=== PATIENT | female | born 1935 | race Caucasian/White ===

== ENCOUNTER 2017-02-01 17:11 | Emergency (ER) | payer OTHER ==
[~2017-02-01] VITALS: Ht 167.6 cm; Wt 90.7 kg
[~2017-02-01 17:11] MED LIST: AMLO5TAB4 PO; ASPI325T2 PO; CEL20 PO; CLOP75TA2 PO; HYDR25TA4 PO; ISOS30TA6 PO; POTA20TA83 PO; PRO40 PO; TRAM50TA92 PO
[2017-02-01 17:24] VITALS: BP 129/87; PULSE 92; RESP 16; TEMP 98.2; O2SAT 96
--- NOTE | 2017-02-01 17:24 | NUR ---
Note dimitris in [facility] - 02/01/17 at 1737 by [email or web address] Patient to bed 05 to wn for evaluation. Side rails up.
[2017-02-01 18:03] LABS: BASOPHILS # (AUTO) 0.3 K/uL (0.0-0.2); BASOPHILS % (AUTO) 1.7 % (0.0-2.0); EOSINOPHILS # (AUTO) 0.1 K/uL (0.0-0.4); EOSINOPHILS % (AUTO) 0.6 % (0.0-4.0); HEMATOCRIT 40.6 % (36-48); HEMOGLOBIN 12.9 g/dL (12.0-16.0); LYMPHOCYTES # (AUTO) 1.2 K/uL (1.0-5.5); LYMPHOCYTES % (AUTO) 7.7 % (20.5-51.5); MEAN CORPUSCULAR HEMOGLOBIN 25 pg (27-31); MEAN CORPUSCULAR HGB CONC 32 % (32-36); MEAN CORPUSCULAR VOLUME 78 fL (79.0-98.0); MONOCYTES # (AUTO) 0.6 K/uL (0.0-1.0); MONOCYTES % (AUTO) 3.8 % (1.7-9.3); NEUTROPHILS # (AUTO) 13.1 K/uL (1.8-7.7); NEUTROPHILS % (AUTO) 86.2 % (40.0-70.0); PLATELET COUNT (AUTO) 408 K/uL (130-430); RED BLOOD CELL COUNT(AUTO) 5.19 MIL/uL (4.2-6.2); RED CELL DISTRIBUTION WIDTH 16.4 % (9.0-15.0); WHITE BLOOD COUNT (AUTO) 15.3 K/uL (4.8-10.8)
[2017-02-01 18:13] LABS: ANION GAP 7 (5-15); CALCIUM 9.2 mg/dL (8.4-11.0); CHLORIDE 96 mmol/L (98-107); CREATININE 1.05 mg/dL (0.55-1.30); GLUCOSE 133 mg/dL (70-99); POTASSIUM 3.6 mmol/L (3.5-5.1); SODIUM SERUM 131 mmol/L (136-145); UREA NITROGEN, BLOOD 18 mg/dL (8-21)
[2017-02-01 18:17] LABS: ALANINE AMINOTRANSFERASE 18 U/L (12-78); ALBUMIN 3.7 g/dL (3.4-4.8); ASPARTATE AMINOTRANSFERASE 19 U/L (10-37); LIPASE 65 U/L (73-393); TOTAL BILIRUBIN 0.4 mg/dL (0.0-1.0); TOTAL PROTEIN, SERUM 7.8 g/dL (6.4-8.3)
--- NOTE | 2017-02-01 18:21 | NUR ---
Patient to ER bed 8 to gown for evaluation. Side rails up. Report given to Trina CARRIZALES.
--- NOTE | 2017-02-01 18:21 | NUR ---
ER at bedside examining patient.
--- NOTE | 2017-02-01 18:21 | NUR ---
m Addendum: 02/01/17 at 1922 by [email or web address] disregard
--- NOTE | 2017-02-01 18:22 | NUR ---
Pt presents to ED with RLQ abd pain. No redness, no bruising noted. Denies any trauma to the area. Reports pain at 6/10. Denies taking any pain medication at home
--- NOTE | 2017-02-01 18:41 | NUR ---
# 20 gauge angiocath placed to LAC. Use of asceptic technique. Opsite placed over site. Blood return noted. Flushed with 10 cc of normal saline. No evidence of infiltration noted. Patient tolerated well.
--- NOTE | 2017-02-01 18:55 | NUR ---
Pt attempted to urinate for U/A- Unsuccessful
--- NOTE | 2017-02-01 19:30 | NUR ---
Report given to oncoming Noc nurse Kaiden, RN
[2017-02-01] MEDS ORDERED: IOHEXOL 100 ML IV ONE (19:37)
[2017-02-01 20:40] LABS: BILIRUBIN,URINE NEGATIVE (NEGATIVE); CLARITY/URINE HAZY (CLEAR); COLOR,URINE YELLOW (YELLOW); GLUCOSE,URINE NEGATIVE (NEGATIVE); KETONES,URINE NEGATIVE (NEGATIVE); LEUKOCYTE ESTERASE ,URINE NEGATIVE (NEGATIVE); NITRITE, URINE NEGATIVE (NEGATIVE); PH,URINE 7.5 (5.0-8.0); PROTEIN URINE NEGATIVE (NEGATIVE); UROBILINOGEN,URINE 0.2 (0.2-1.0)
[2017-02-01 20:41] LABS: BLOOD, URINE TRACE (NEGATIVE)
[2017-02-01 20:50] VITALS: BP 121/79; PULSE 79; RESP 16; TEMP 98; O2SAT 99
[2017-02-01 20:53] LABS: BACTERIA,URINE MODERATE /HPF (None Seen); MUCUS,URINE None Seen /LPF (None Seen); RBC,URINE 0-3 /HPF (0-3)
--- NOTE | 2017-02-01 20:55 | NUR ---
Patient given written and verbal discharge instructions and verbalizes understanding. ER MD dr. conn discussed with patient the results and treatment provided. Patient in stable condition. ID arm band removed. IV catheter removed intact and dressing applied, no active bleeding no Rx given. Patient educated on pain management and to follow up with PMD. Pain Scale 0/10 Opportunity for questions provided and answered.
== END 2017-02-01 20:55 | disposition home or self-care (01) ==
LOC: SED 17:11
DX: N39.0 Urinary tract infection, site not specified (principal); K59.00 Constipation, unspecified; I10 Essential (primary) hypertension; Z88.2 Allergy status to sulfonamides; Z88.1 Allergy status to other antibiotic agents; Z86.73 Personal history of transient ischemic attack (TIA), and cerebral infarction without residual deficits; Z79.82 Long term (current) use of aspirin
CPT/HCPCS: 36415; 71260; 74176; 80053; 81000; 83690; 85025; 99285; Q9967

== ENCOUNTER 2017-08-17 22:26 | Emergency (ER) | payer OTHER ==
[~2017-08-17] VITALS: Ht 167.6 cm; Wt 90.7 kg
[2017-08-17 22:26] VITALS: BP_SYST 188
[~2017-08-17 22:26] MED LIST changes: -AMLO5TAB4 PO; -HYDR25TA4 PO; -POTA20TA83 PO
[2017-08-17] MEDS ORDERED: TRAZ-126 PO (22:59)
[2017-08-17] MEDS ORDERED: MAGN400T10 PO (22:59)
[2017-08-17] MEDS ORDERED: FERR-31 PO (22:59)
[2017-08-17] MEDS ORDERED: CYM30 PO (22:59)
[2017-08-17] MEDS ORDERED: PRAM1TAB4 PO (22:59)
[2017-08-17] MEDS ORDERED: TRIA1CAP53 PO (22:59)
[2017-08-17] MEDS ORDERED: LIP20 PO (22:59)
[2017-08-17] MEDS ORDERED: DIPH-TET-PERTUS Vaccine 0.5 ML VIAL (ADACEL) I.M. ONE (23:00)
[2017-08-17] MEDS ORDERED: LIDOCAINE/PRILOCAINE 5 GM CREAM (EMLA) TP ONE (23:15)
[2017-08-18 00:20] VITALS: BP_SYST 185
== END 2017-08-18 00:20 | disposition home or self-care (01) ==
LOC: SED 22:26
DX: S01.01XA Laceration without foreign body of scalp, initial encounter (principal); I10 Essential (primary) hypertension; Z88.1 Allergy status to other antibiotic agents; Z79.82 Long term (current) use of aspirin; Z79.899 Other long term (current) drug therapy; W18.39XA Other fall on same level, initial encounter; Y93.01 Activity, walking, marching and hiking; Y92.89 Other specified places as the place of occurrence of the external cause; Y99.8 Other external cause status
CPT/HCPCS: 12002; 70450; 72125; 90471; 90715; 93005; 99284; J7030

== ENCOUNTER 2018-04-22 12:22 | Inpatient (IN) | payer OTHER ==
[~2018-04-22] VITALS: Ht 167.6 cm; Wt 88.9 kg
[~2018-04-22 12:22] MED LIST changes: +CYM30 PO; +FERR-31 PO; +LIP20 PO; +MAGN400T10 PO; +PRAM1TAB4 PO; +TRAZ-126 PO; +TRIA1CAP53 PO
[2018-04-22 12:40] VITALS: BP_SYST 104
[2018-04-22] MEDS ORDERED: NACL 0.9% 1,000 ML IV ONE (12:45)
[2018-04-22 13:11] LABS: ANION GAP 13 (5-15); CALCIUM 8.9 mg/dL (8.4-11.0); CHLORIDE 89 mmol/L (98-107); CREATININE 1.28 mg/dL (0.55-1.30); GLUCOSE 178 mg/dL (70-99); POTASSIUM 3.2 mmol/L (3.5-5.1); SODIUM SERUM 130 mmol/L (136-145); UREA NITROGEN, BLOOD 31 mg/dL (8-21)
[2018-04-22 13:12] LABS: PROTHROMBIN TIME 10.1 SECS (9.5-12.5)
[2018-04-22 13:16] LABS: ALANINE AMINOTRANSFERASE 39 U/L (12-78); ALBUMIN 2.7 g/dL (3.4-4.8); ASPARTATE AMINOTRANSFERASE 35 U/L (10-37); TOTAL BILIRUBIN 0.5 mg/dL (0.0-1.0)
[2018-04-22 13:27] LABS: HEMATOCRIT 40.9 % (36-54); MEAN CORPUSCULAR HEMOGLOBIN 30 pg (27-31); MEAN CORPUSCULAR HGB CONC 34 % (32-36); MEAN CORPUSCULAR VOLUME 89 fL (79.0-98.0); PLATELET COUNT (AUTO) 294 K/uL (130-430); RED BLOOD CELL COUNT(AUTO) 4.59 MIL/uL (4.2-6.2); RED CELL DISTRIBUTION WIDTH 12.6 % (9.0-15.0); WHITE BLOOD COUNT (AUTO) 13.3 K/uL (4.8-10.8)
[2018-04-22 13:34] LABS: HEMOGLOBIN 13.9 g/dL (12.0-16.0)
[2018-04-22 13:41] LABS: BILIRUBIN,URINE NEGATIVE (NEGATIVE); BLOOD, URINE 2+ (NEGATIVE); CLARITY/URINE CLOUDY (CLEAR); COLOR,URINE YELLOW (YELLOW); GLUCOSE,URINE NEGATIVE (NEGATIVE); KETONES,URINE NEGATIVE (NEGATIVE); LEUKOCYTE ESTERASE ,URINE 2+ (NEGATIVE); NITRITE, URINE POSITIVE (NEGATIVE); PROTEIN URINE 2+ (NEGATIVE); UROBILINOGEN,URINE 0.2 (0.2-1.0)
[2018-04-22 13:43] LABS: BACTERIA,URINE MANY /HPF (None Seen); WBC,URINE 80-100 /HPF (0-3)
[2018-04-22] MEDS ORDERED: cefTRIAXone 1 GM IVPB PREMIX 50 ML IV ONE (13:45)
[2018-04-22 14:31] LABS: BAND % (MANUAL) 8 % (0-6); BASOPHILS % (MANUAL) 0 % (0-2); EOSINOPHILS % (MANUAL) 1 % (0-7); LYMPHOCYTES % (MANUAL) 3 % (20-46); MONOCYTES % (MANUAL) 5 % (0-11)
[2018-04-22] MEDS ORDERED: ATEN50TA PO (15:17)
[2018-04-22] MEDS ORDERED: PRAM1TAB4 PO (15:17)
[2018-04-22] MEDS ORDERED: METF-510 PO (15:17)
[2018-04-22] MEDS ORDERED: DULO60CA41 PO (15:17)
[2018-04-22 15:24] VITALS: BP_SYST 104
[2018-04-22 16:00] VITALS: BP_SYST 104
[2018-04-22 16:05] VITALS: BP_SYST 104
[2018-04-22] MEDS ORDERED: METOCLOPRAMIDE HCL 10 MG/2 ML VIAL IVP PRN (17:30)
[2018-04-22] MEDS ORDERED: ONDANSETRON HCL 4 MG/2 ML VIAL IVP PRN (17:30)
[2018-04-22] MEDS ORDERED: DEXTROSE 50% JECT 50 ML DISP.SYRIN IVP PRN (17:30)
[2018-04-22] MEDS ORDERED: MORPHINE 2 MG/ML INJ. SYRINGE IVP PRN (17:30)
[2018-04-22] MEDS ORDERED: ACETAMINOPHEN 325 MG TABLET PO PRN (17:30)
[2018-04-22] MEDS ORDERED: LEVOFLOXACIN 500 MG/D5W 100 ML IV ONE (18:00)
[2018-04-22] MEDS: NACL 0.9% 1,000 ML IV SCH (18:03)
[2018-04-22 20:00] VITALS: BP_SYST 138
[2018-04-23 01:50] VITALS: BP_SYST 146
[2018-04-23 08:02] VITALS: BP_SYST 127
[2018-04-23] MEDS: NACL 0.9% 1,000 ML IV SCH (10:23)
[2018-04-23 11:17] LABS: BASOPHILS # (AUTO) 0.1 K/uL (0.0-0.2); BASOPHILS % (AUTO) 1.2 % (0.0-2.0); HEMATOCRIT 38.3 % (36-48); HEMOGLOBIN 12.9 g/dL (12.0-16.0); LYMPHOCYTES # (AUTO) 0.5 K/uL (1.0-5.5); LYMPHOCYTES % (AUTO) 3.9 % (20.5-51.5); MEAN CORPUSCULAR HEMOGLOBIN 30 pg (27-31); MEAN CORPUSCULAR HGB CONC 34 % (32-36); MEAN CORPUSCULAR VOLUME 90 fL (79.0-98.0); MONOCYTES # (AUTO) 0.9 K/uL (0.0-1.0); MONOCYTES % (AUTO) 7.5 % (1.7-9.3); NEUTROPHILS # (AUTO) 10.5 K/uL (1.8-7.7); NEUTROPHILS % (AUTO) 87.4 % (40.0-70.0); PLATELET COUNT (AUTO) 272 K/uL (130-430); RED BLOOD CELL COUNT(AUTO) 4.26 MIL/uL (4.2-6.2); RED CELL DISTRIBUTION WIDTH 12.5 % (9.0-15.0)
[2018-04-23 11:30] LABS: ANION GAP 8 (5-15); CALCIUM 8.3 mg/dL (8.4-11.0); CHLORIDE 103 mmol/L (98-107); GLUCOSE 127 mg/dL (70-99); POTASSIUM 3.2 mmol/L (3.5-5.1); SODIUM SERUM 142 mmol/L (136-145); UREA NITROGEN, BLOOD 24 mg/dL (8-21)
[2018-04-23 11:45] LABS: ALANINE AMINOTRANSFERASE 34 U/L (12-78); ALBUMIN 2.2 g/dL (3.4-4.8); ASPARTATE AMINOTRANSFERASE 27 U/L (10-37); THYROID STIMULATING HORMONE 0.11 uIu/mL (0.34-4.82); TOTAL BILIRUBIN 0.4 mg/dL (0.0-1.0)
[2018-04-23] MEDS ORDERED: ATENOLOL 50 MG TABLET (TENORMIN) PO ONE (12:00)
[2018-04-23 12:34] VITALS: BP_SYST 128
[2018-04-23 16:56] VITALS: BP_SYST 114
[2018-04-23] MEDS: INSULIN REGULAR, HUMAN 100 UNITS/ML, 10 ML VIAL (novoLIN R) SUBCUT PRN (17:14)
[2018-04-23 20:00] VITALS: BP_SYST 129
[2018-04-23] MEDS: LEVOFLOXACIN 250 MG/D5W 50 ML IV SCH (20:32)
[2018-04-23] MEDS: ATORVASTATIN 20 MG TABLET PO SCH (20:32)
[2018-04-23] MEDS: traZODone HCL 50 MG TABLET (DESYREL) PO SCH (20:36)
[2018-04-23] MEDS: PRAMIPEXOLE DI-HCL 1 MG TABLET PO SCH (20:38)
[2018-04-24 00:50] VITALS: BP_SYST 123
[2018-04-24] MEDS: NACL 0.9% 1,000 ML IV SCH (05:43)
[2018-04-24 08:00] VITALS: BP_SYST 125
[2018-04-24] MEDS: ASPIRIN 325 MG TABLET PO SCH (09:24)
[2018-04-24] MEDS: ATENOLOL 50 MG TABLET (TENORMIN) PO SCH (09:25)
[2018-04-24] MEDS: PRAMIPEXOLE DI-HCL 1 MG TABLET PO SCH ×2 (09:26→22:59)
[2018-04-24] MEDS: CLOPIDOGREL BISULFATE 75 MG TABLET PO SCH (09:26)
[2018-04-24] MEDS: DULoxetine HCL 30 MG CAPSULE.DR (CYMBALTA) PO SCH (09:26)
[2018-04-24] MEDS: CITALOPRAM HYDROBROMIDE 20 MG TABLET PO SCH (09:26)
[2018-04-24 12:10] VITALS: BP_SYST 113
[2018-04-24] MEDS: INSULIN REGULAR, HUMAN 100 UNITS/ML, 10 ML VIAL (novoLIN R) SUBCUT PRN (12:36)
[2018-04-24 16:10] VITALS: BP_SYST 123
[2018-04-24 19:00] VITALS: BP_SYST 118
[2018-04-24 20:00] VITALS: BP_SYST 118
[2018-04-24] MEDS: LEVOFLOXACIN 250 MG/D5W 50 ML IV SCH (22:56)
[2018-04-24] MEDS: traZODone HCL 50 MG TABLET (DESYREL) PO SCH (22:57)
[2018-04-24] MEDS: ATORVASTATIN 20 MG TABLET PO SCH (22:58)
[2018-04-25 00:42] VITALS: BP_SYST 126
[2018-04-25 06:50] LABS: RED BLOOD CELL COUNT(AUTO) 3.99 MIL/uL (4.2-6.2)
[2018-04-25 06:59] LABS: HEMOGLOBIN 12.1 g/dL (12.0-16.0); MEAN CORPUSCULAR HEMOGLOBIN 30 pg (27-31); MEAN CORPUSCULAR HGB CONC 34 % (32-36); MEAN CORPUSCULAR VOLUME 90 fL (79.0-98.0); PLATELET COUNT (AUTO) 297 K/uL (130-430); RED CELL DISTRIBUTION WIDTH 12.6 % (9.0-15.0); WHITE BLOOD COUNT (AUTO) 12.8 K/uL (4.8-10.8)
[2018-04-25 07:10] LABS: ALANINE AMINOTRANSFERASE 46 U/L (12-78); ALBUMIN 1.9 g/dL (3.4-4.8); ANION GAP 5 (5-15); ASPARTATE AMINOTRANSFERASE 31 U/L (10-37); CALCIUM 8.5 mg/dL (8.4-11.0); CHLORIDE 100 mmol/L (98-107); CREATININE 1.13 mg/dL (0.55-1.30); GLUCOSE 124 mg/dL (70-99); POTASSIUM 3.3 mmol/L (3.5-5.1); SODIUM SERUM 135 mmol/L (136-145); TOTAL BILIRUBIN 0.5 mg/dL (0.0-1.0); UREA NITROGEN, BLOOD 38 mg/dL (8-21)
[2018-04-25] MEDS: CLOPIDOGREL BISULFATE 75 MG TABLET PO SCH (08:57)
[2018-04-25] MEDS: CITALOPRAM HYDROBROMIDE 20 MG TABLET PO SCH (08:57)
[2018-04-25] MEDS: ASPIRIN 325 MG TABLET PO SCH (08:57)
[2018-04-25] MEDS: DULoxetine HCL 30 MG CAPSULE.DR (CYMBALTA) PO SCH (08:57)
[2018-04-25] MEDS: ATENOLOL 50 MG TABLET (TENORMIN) PO SCH (08:59)
[2018-04-25] MEDS: PRAMIPEXOLE DI-HCL 1 MG TABLET PO SCH ×2 (09:07→22:10)
[2018-04-25] MEDS ORDERED: POTASSIUM CHLORIDE 20 MEQ TAB.PRT.SR PO ONE (11:15)
[2018-04-25 12:12] LABS: BAND % (MANUAL) 12 % (0-6); LYMPHOCYTES % (MANUAL) 16 % (20-46); MONOCYTES % (MANUAL) 11 % (0-11)
[2018-04-25 12:13] LABS: BASOPHILS % (MANUAL) 0 % (0-2); EOSINOPHILS % (MANUAL) 0 % (0-7)
[2018-04-25 12:31] VITALS: BP_SYST 113
[2018-04-25 14:45] VITALS: BP_SYST 113
[2018-04-25] MEDS ORDERED: ALBUTEROL SULFATE 0.083% 2.5 MG/3 ML VIAL.NEB INH PRN (14:45)
[2018-04-25] MEDS ORDERED: IPRATROPIUM BROM 0.5 MG/2.5 ML VIAL.NEB (ATROVENT) INH PRN (14:45)
[2018-04-25] MEDS: ALBUTEROL SULFATE 0.083% 2.5 MG/3 ML VIAL.NEB INH SCH ×3 (15:23→23:00)
[2018-04-25] MEDS: IPRATROPIUM BROM 0.5 MG/2.5 ML VIAL.NEB (ATROVENT) INH SCH ×3 (15:23→23:00)
[2018-04-25] MEDS ORDERED: ENOXAPARIN SODIUM 40 MG/0.4 ML SYRINGE SUBCUT ONE (15:30)
[2018-04-25] MEDS ORDERED: ENOXAPARIN SODIUM 80 MG/0.8 ML SYRINGE SUBCUT ONE (16:00)
[2018-04-25] MEDS ORDERED: NS 500 ML IV ONE (16:15)
[2018-04-25 16:24] VITALS: BP_SYST 127
[2018-04-25] MEDS ORDERED: NACL 0.9% 1,000 ML IV ONE (16:45)
[2018-04-25] MEDS: PIPERACILLIN/TAZO 3.375/DEX-IS 50 ML IV SCH (18:24)
[2018-04-25 20:00] VITALS: BP_SYST 112
[2018-04-25] MEDS ORDERED: IOHEXOL 350 mgI/mL, 150 ML INFUS..BTL IV ONE (20:57)
[2018-04-25] MEDS: traZODone HCL 50 MG TABLET (DESYREL) PO SCH (22:09)
[2018-04-25] MEDS: LEVOFLOXACIN 250 MG/D5W 50 ML IV SCH (22:09)
[2018-04-25] MEDS: ATORVASTATIN 20 MG TABLET PO SCH (22:09)
[2018-04-26 00:20] VITALS: BP_SYST 106
[2018-04-26] MEDS: PIPERACILLIN/TAZO 3.375/DEX-IS 50 ML IV SCH ×3 (00:52→11:37)
[2018-04-26] MEDS: ALBUTEROL SULFATE 0.083% 2.5 MG/3 ML VIAL.NEB INH SCH ×3 (07:41→15:33)
[2018-04-26] MEDS: IPRATROPIUM BROM 0.5 MG/2.5 ML VIAL.NEB (ATROVENT) INH SCH ×3 (07:41→15:33)
[2018-04-26 08:00] VITALS: BP_SYST 125
[2018-04-26] MEDS: ASPIRIN 325 MG TABLET PO SCH (08:36)
[2018-04-26] MEDS: PRAMIPEXOLE DI-HCL 1 MG TABLET PO SCH (08:37)
[2018-04-26] MEDS: CLOPIDOGREL BISULFATE 75 MG TABLET PO SCH (08:38)
[2018-04-26] MEDS: CITALOPRAM HYDROBROMIDE 20 MG TABLET PO SCH (08:38)
[2018-04-26] MEDS: DULoxetine HCL 30 MG CAPSULE.DR (CYMBALTA) PO SCH (08:38)
[2018-04-26] MEDS: ATENOLOL 50 MG TABLET (TENORMIN) PO SCH (08:38)
[2018-04-26] MEDS ORDERED: ENOXAPARIN SODIUM 40 MG/0.4 ML SYRINGE SUBCUT SCH (09:00)
[2018-04-26 11:58] VITALS: BP_SYST 116; BP_SYST 121
[2018-04-26 12:00] VITALS: BP_SYST 117
[2018-04-26 16:00] VITALS: BP_SYST 120
== END 2018-04-26 17:05 | disposition home health service (06) | DRG 682 ==
LOC: SED 12:22 → EDSEX 12:22 → SMU 14:22
PROVIDERS: ADMIT Internal Medicine Hospice and Palliative Medicine; ATTEND Internal Medicine Hospice and Palliative Medicine
DX: N17.0 Acute kidney failure with tubular necrosis (principal); G93.40 Encephalopathy, unspecified; J18.9 Pneumonia, unspecified organism; N39.0 Urinary tract infection, site not specified; I10 Essential (primary) hypertension; E11.9 Type 2 diabetes mellitus without complications; E86.0 Dehydration; G25.81 Restless legs syndrome; I11.9 Hypertensive heart disease without heart failure; R41.0 Disorientation, unspecified; B96.20 Unspecified Escherichia coli [E. coli] as the cause of diseases classified elsewhere; Z88.8 Allergy status to other drugs, medicaments and biological substances; Z86.73 Personal history of transient ischemic attack (TIA), and cerebral infarction without residual deficits; Z87.891 Personal history of nicotine dependence; Z88.2 Allergy status to sulfonamides; Z79.899 Other long term (current) drug therapy; Z79.82 Long term (current) use of aspirin; Z90.710 Acquired absence of both cervix and uterus
CPT/HCPCS: 36415; 36600; 71045; 71275; 80053; 81000-TC; 82803-TC; 82962; 83036; 83605; 83880; 84443-TC; 84484; 85007; 85025; 85027; 85610-TC; 85730-TC; 87040-TC; 87086; 87186-TC; 93005; 93970; 94640; 94760; 96361; 96365; 97116-GP; 97530-GP; 99285; J0696; J1650; J1815; J1956; J2270; J2543; J7030; J7613; Q9967

== ENCOUNTER 2022-11-24 16:16 | Inpatient (IN) | payer OTHER ==
[~2022-11-24] VITALS: Ht 165.1 cm; Wt 68.3 kg
[~2022-11-24 16:16] MED LIST changes: +ASPI-858 PO; -ASPI325T2 PO; +ATEN50TA PO; -CYM30 PO; +DULO60CA42 PO; -FERR-31 PO; -ISOS30TA6 PO; -MAGN400T10 PO; +METF-518 PO; -PRO40 PO; -TRAM50TA92 PO; -TRAZ-126 PO; +TRAZ-251 PO; -TRIA1CAP53 PO
[2022-11-24 16:20] VITALS: BP_SYST 157
[2022-11-24] MEDS ORDERED: NACL 0.9% 1,000 ML IV ONE (17:30)
[2022-11-24 19:16] LABS: BASOPHILS % (AUTO) 0.1 % (0.0-2.0); EOSINOPHILS % (AUTO) 0.1 % (0.0-4.0); HEMATOCRIT 39.3 % (36-48); HEMOGLOBIN 13.4 g/dL (12.0-16.0); LYMPHOCYTES # (AUTO) 0.3 K/uL (1.0-5.5); LYMPHOCYTES % (AUTO) 4.2 % (20.5-51.5); MEAN CORPUSCULAR HEMOGLOBIN 30 pg (27-31); MEAN CORPUSCULAR HGB CONC 34 % (32-36); MEAN CORPUSCULAR VOLUME 89 fL (79.0-98.0); MONOCYTES # (AUTO) 0.7 K/uL (0.0-1.0); MONOCYTES % (AUTO) 9.2 % (1.7-9.3); NEUTROPHILS # (AUTO) 7.1 K/uL (1.8-7.7); NEUTROPHILS % (AUTO) 86.4 % (40.0-70.0); PLATELET COUNT (AUTO) 188 K/uL (130-430); RED BLOOD CELL COUNT(AUTO) 4.41 MIL/uL (4.2-6.2); RED CELL DISTRIBUTION WIDTH 12.9 % (9.0-15.0); WHITE BLOOD COUNT (AUTO) 8.2 K/uL (4.8-10.8)
[2022-11-24 19:36] LABS: ALANINE AMINOTRANSFERASE 27 U/L (12-78); ALBUMIN 3.4 g/dL (3.4-4.8); ANION GAP 8 (5-15); ASPARTATE AMINOTRANSFERASE 26 U/L (10-37); CALCIUM 9.3 mg/dL (8.4-11.0); CHLORIDE 100 mmol/L (98-107); CREATININE 1.25 mg/dL (0.55-1.30); GLUCOSE 148 mg/dL (70-99); LIPASE 65 U/L (73-393); TOTAL BILIRUBIN 0.4 mg/dL (0.0-1.0); UREA NITROGEN, BLOOD 29 mg/dL (8-21)
[2022-11-24 19:46] LABS: BILIRUBIN,URINE NEGATIVE (NEGATIVE); BLOOD, URINE 1+ (NEGATIVE); COLOR,URINE YELLOW (YELLOW); GLUCOSE,URINE NEGATIVE (NEGATIVE); KETONES,URINE 1+ (NEGATIVE); LEUKOCYTE ESTERASE ,URINE 3+ (NEGATIVE); NITRITE, URINE POSITIVE (NEGATIVE); PROTEIN URINE 1+ (NEGATIVE); UROBILINOGEN,URINE 0.2 (0.2-1.0)
[2022-11-24 19:58] LABS: CLARITY/URINE HAZY (CLEAR); RBC,URINE NONE SEEN /HPF (0-3); WBC,URINE >100 /HPF (0-3)
[2022-11-24 19:59] LABS: BACTERIA,URINE FEW /HPF (None Seen); MUCUS,URINE None Seen /LPF (None Seen)
[2022-11-24] MEDS ORDERED: cefTRIAXone 1 GM in D5W 50 ML IV ONE (20:00)
[2022-11-24] MEDS ORDERED: cefTRIAXone 1 GM VIAL ONE (20:07)
[2022-11-24] MEDS ORDERED: ACETAMINOPHEN 325 MG TABLET PO PRN (22:45)
[2022-11-24] MEDS: D5/0.45 NS 1,000 ML IV SCH (22:59)
[2022-11-25 00:12] VITALS: BP_SYST 155
[2022-11-25 00:48] VITALS: BP_SYST 155
[2022-11-25 08:00] VITALS: BP_SYST 141
[2022-11-25] MEDS: D5/0.45 NS 1,000 ML IV SCH ×2 (08:45→17:17)
[2022-11-25] MEDS ORDERED: ACETAMINOPHEN 325 MG TABLET PO PRN ×3 (09:30→12:45)
[2022-11-25] MEDS: cefTRIAXone 1 GM IVPB PREMIX 50 ML IV SCH (10:01)
[2022-11-25 12:00] VITALS: BP_SYST 144
[2022-11-25] MEDS ORDERED: HYDROcodone/ACETAMIN 10-325 MG TAB PO PRN (12:15)
[2022-11-25] MEDS ORDERED: cefTRIAXone 1 GM IVPB PREMIX 50 ML IV SCH (12:15)
[2022-11-25] MEDS ORDERED: ONDANSETRON HCL 4 MG/2 ML VIAL IVP PRN (12:15)
[2022-11-25] MEDS ORDERED: LORazepam 2 MG/ML VIAL IVP PRN (12:15)
[2022-11-25] MEDS ORDERED: NALOXONE HCL 0.4 MG/ML AMP (NARCAN) IVP PRN ×2 (12:15)
[2022-11-25] MEDS ORDERED: DULoxetine HCL 30 MG CAPSULE.DR (CYMBALTA) PO ONE (12:45)
[2022-11-25] MEDS ORDERED: ASPIRIN 325 MG TABLET PO ONE (12:45)
[2022-11-25] MEDS ORDERED: ATENOLOL 50 MG TABLET (TENORMIN) PO ONE (12:45)
[2022-11-25] MEDS ORDERED: CLOPIDOGREL BISULFATE 75 MG TABLET PO ONE (12:45)
[2022-11-25] MEDS ORDERED: CITALOPRAM HYDROBROMIDE 20 MG TABLET PO ONE (12:45)
[2022-11-25] MEDS: NORMAL SALINE 5 ML DISP.SYRIN IVF SCH ×2 (13:18→21:36)
[2022-11-25] MEDS ORDERED: NORMAL SALINE 5 ML DISP.SYRIN IVF SCH (14:00)
[2022-11-25 16:52] VITALS: BP_SYST 142
[2022-11-25] MEDS ORDERED: traZODone HCL 50 MG TABLET (DESYREL) PO SCH (21:00)
[2022-11-25] MEDS: ATORVASTATIN 20 MG TABLET PO SCH (21:26)
[2022-11-25] MEDS: PRAMIPEXOLE DI-HCL 1 MG TABLET PO SCH (21:26)
[2022-11-25 21:37] VITALS: BP_SYST 125
[2022-11-26 00:54] VITALS: BP_SYST 100
[2022-11-26] MEDS: HYDROcodone/ACETAMIN 5-325 MG TAB (NORCO/ VICODIN) PO PRN ×2 (02:23→21:10)
[2022-11-26] MEDS: D5/0.45 NS 1,000 ML IV SCH ×2 (05:43→15:35)
[2022-11-26] MEDS: NORMAL SALINE 5 ML DISP.SYRIN IVF SCH ×3 (05:48→21:09)
[2022-11-26 08:00] VITALS: BP_SYST 120
[2022-11-26 08:15] LABS: BASOPHILS % (AUTO) 0.3 % (0.0-2.0); EOSINOPHILS % (AUTO) 0.9 % (0.0-4.0); HEMATOCRIT 34.9 % (36-48); HEMOGLOBIN 11.7 g/dL (12.0-16.0); LYMPHOCYTES # (AUTO) 0.8 K/uL (1.0-5.5); LYMPHOCYTES % (AUTO) 15.2 % (20.5-51.5); MEAN CORPUSCULAR HEMOGLOBIN 30 pg (27-31); MEAN CORPUSCULAR HGB CONC 34 % (32-36); MEAN CORPUSCULAR VOLUME 90 fL (79.0-98.0); MONOCYTES # (AUTO) 0.8 K/uL (0.0-1.0); MONOCYTES % (AUTO) 14.8 % (1.7-9.3); NEUTROPHILS # (AUTO) 3.8 K/uL (1.8-7.7); NEUTROPHILS % (AUTO) 68.8 % (40.0-70.0); PLATELET COUNT (AUTO) 145 K/uL (130-430); RED BLOOD CELL COUNT(AUTO) 3.86 MIL/uL (4.2-6.2); RED CELL DISTRIBUTION WIDTH 12.7 % (9.0-15.0); WHITE BLOOD COUNT (AUTO) 5.6 K/uL (4.8-10.8)
[2022-11-26] MEDS: PRAMIPEXOLE DI-HCL 1 MG TABLET PO SCH ×2 (09:00→21:09)
[2022-11-26] MEDS ORDERED: DULoxetine HCL 30 MG CAPSULE.DR (CYMBALTA) PO SCH (09:00)
[2022-11-26] MEDS ORDERED: CITALOPRAM HYDROBROMIDE 20 MG TABLET PO SCH (09:00)
[2022-11-26] MEDS ORDERED: ATENOLOL 50 MG TABLET (TENORMIN) PO SCH (09:00)
[2022-11-26 09:05] LABS: ANION GAP 8 (5-15); CALCIUM 8.5 mg/dL (8.4-11.0); CHLORIDE 100 mmol/L (98-107); CREATININE 1.36 mg/dL (0.55-1.30); GLUCOSE 149 mg/dL (70-99); UREA NITROGEN, BLOOD 32 mg/dL (8-21)
[2022-11-26] MEDS: ASPIRIN 325 MG TABLET PO SCH ×2 (10:14→10:30)
[2022-11-26] MEDS: CLOPIDOGREL BISULFATE 75 MG TABLET PO SCH (10:16)
[2022-11-26] MEDS: cefTRIAXone 1 GM IVPB PREMIX 50 ML IV SCH (10:24)
[2022-11-26] MEDS: INSULIN REGULAR, HUMAN 100 UNITS/ML, 3 ML VIAL (humuLIN R) SUBCUT PRN (11:00)
[2022-11-26 12:11] VITALS: BP_SYST 142
[2022-11-26 17:14] VITALS: BP_SYST 146
[2022-11-26 20:00] VITALS: BP_SYST 145
[2022-11-26] MEDS: metFORMIN HCL 500 MG TABLET PO SCH (21:00)
[2022-11-26] MEDS: DOXYCYCLINE HYCLATE 100 MG in D5W 100 ML IV SCH (21:08)
[2022-11-26] MEDS: FUROSEMIDE 20 MG TABLET PO SCH (21:08)
[2022-11-26] MEDS: ATORVASTATIN 20 MG TABLET PO SCH (21:09)
[2022-11-27] VITALS: BP_SYST 138
[2022-11-27] MEDS: D5/0.45 NS 1,000 ML IV SCH (00:25)
[2022-11-27 04:00] VITALS: BP_SYST 138
[2022-11-27] MEDS: NORMAL SALINE 5 ML DISP.SYRIN IVF SCH ×3 (06:08→20:53)
[2022-11-27 07:48] LABS: BASOPHILS % (AUTO) 0.3 % (0.0-2.0); EOSINOPHILS # (AUTO) 0.2 K/uL (0.0-0.4); EOSINOPHILS % (AUTO) 3.1 % (0.0-4.0); HEMATOCRIT 37.9 % (36-48); HEMOGLOBIN 12.8 g/dL (12.0-16.0); LYMPHOCYTES # (AUTO) 0.8 K/uL (1.0-5.5); LYMPHOCYTES % (AUTO) 13.2 % (20.5-51.5); MEAN CORPUSCULAR HEMOGLOBIN 30 pg (27-31); MEAN CORPUSCULAR HGB CONC 34 % (32-36); MEAN CORPUSCULAR VOLUME 90 fL (79.0-98.0); MONOCYTES # (AUTO) 0.7 K/uL (0.0-1.0); MONOCYTES % (AUTO) 11.5 % (1.7-9.3); NEUTROPHILS # (AUTO) 4.4 K/uL (1.8-7.7); NEUTROPHILS % (AUTO) 71.9 % (40.0-70.0); PLATELET COUNT (AUTO) 170 K/uL (130-430); RED BLOOD CELL COUNT(AUTO) 4.21 MIL/uL (4.2-6.2); RED CELL DISTRIBUTION WIDTH 13.1 % (9.0-15.0); WHITE BLOOD COUNT (AUTO) 6.1 K/uL (4.8-10.8)
[2022-11-27 07:58] LABS: ALANINE AMINOTRANSFERASE 29 U/L (12-78); ALBUMIN 2.6 g/dL (3.4-4.8); ANION GAP 5 (5-15); ASPARTATE AMINOTRANSFERASE 27 U/L (10-37); C-REACTIVE PROTEIN QUANT 5.5 mg/dL (0-0.5); CALCIUM 8.3 mg/dL (8.4-11.0); CHLORIDE 103 mmol/L (98-107); CREATININE 1.17 mg/dL (0.55-1.30); GLUCOSE 138 mg/dL (70-99); TOTAL BILIRUBIN 0.2 mg/dL (0.0-1.0); UREA NITROGEN, BLOOD 22 mg/dL (8-21)
[2022-11-27 11:00] LABS: ERYTHROCYTE SEDIMENTATION RATE 28 MM/HR (0-20)
[2022-11-27 11:14] VITALS: BP_SYST 148
[2022-11-27] MEDS: cefTRIAXone 1 GM IVPB PREMIX 50 ML IV SCH (13:34)
[2022-11-27] MEDS: DOXYCYCLINE HYCLATE 100 MG in D5W 100 ML IV SCH ×2 (13:35→20:32)
[2022-11-27] MEDS: ASPIRIN 325 MG TABLET PO SCH (13:36)
[2022-11-27] MEDS: metFORMIN HCL 500 MG TABLET PO SCH ×2 (13:36→20:52)
[2022-11-27] MEDS: FUROSEMIDE 20 MG TABLET PO SCH ×2 (13:37→20:30)
[2022-11-27] MEDS: PRAMIPEXOLE DI-HCL 0.25 MG TABLET PO SCH (13:38)
[2022-11-27] MEDS: CLOPIDOGREL BISULFATE 75 MG TABLET PO SCH (13:39)
[2022-11-27 17:09] VITALS: BP_SYST 140
[2022-11-27 20:00] VITALS: BP_SYST 138
[2022-11-27] MEDS: PRAMIPEXOLE DI-HCL 1 MG TABLET PO SCH (21:23)
[2022-11-27] MEDS: ATORVASTATIN 20 MG TABLET PO SCH (21:25)
[2022-11-28 00:23] VITALS: BP_SYST 148
[2022-11-28] MEDS: NORMAL SALINE 5 ML DISP.SYRIN IVF SCH ×3 (06:00→22:38)
[2022-11-28 07:40] LABS: BASOPHILS % (AUTO) 0.3 % (0.0-2.0); EOSINOPHILS # (AUTO) 0.2 K/uL (0.0-0.4); HEMATOCRIT 39.6 % (36-48); HEMOGLOBIN 13.6 g/dL (12.0-16.0); LYMPHOCYTES # (AUTO) 0.8 K/uL (1.0-5.5); LYMPHOCYTES % (AUTO) 12.8 % (20.5-51.5); MEAN CORPUSCULAR HEMOGLOBIN 31 pg (27-31); MEAN CORPUSCULAR HGB CONC 34 % (32-36); MEAN CORPUSCULAR VOLUME 89 fL (79.0-98.0); MONOCYTES # (AUTO) 0.6 K/uL (0.0-1.0); MONOCYTES % (AUTO) 10.5 % (1.7-9.3); NEUTROPHILS # (AUTO) 4.4 K/uL (1.8-7.7); NEUTROPHILS % (AUTO) 73.4 % (40.0-70.0); PLATELET COUNT (AUTO) 200 K/uL (130-430); RED BLOOD CELL COUNT(AUTO) 4.46 MIL/uL (4.2-6.2); RED CELL DISTRIBUTION WIDTH 12.7 % (9.0-15.0); WHITE BLOOD COUNT (AUTO) 5.9 K/uL (4.8-10.8)
[2022-11-28 08:18] LABS: ALANINE AMINOTRANSFERASE 24 U/L (12-78); ALBUMIN 2.6 g/dL (3.4-4.8); ANION GAP 6 (5-15); ASPARTATE AMINOTRANSFERASE 19 U/L (10-37); C-REACTIVE PROTEIN QUANT 8.1 mg/dL (0-0.5); CALCIUM 8.5 mg/dL (8.4-11.0); CHLORIDE 102 mmol/L (98-107); CREATININE 1.01 mg/dL (0.55-1.30); GLUCOSE 109 mg/dL (70-99); TOTAL BILIRUBIN 0.4 mg/dL (0.0-1.0); UREA NITROGEN, BLOOD 20 mg/dL (8-21)
[2022-11-28 08:45] VITALS: BP_SYST 159
[2022-11-28] MEDS: CLOPIDOGREL BISULFATE 75 MG TABLET PO SCH (09:32)
[2022-11-28] MEDS: PRAMIPEXOLE DI-HCL 0.25 MG TABLET PO SCH (09:32)
[2022-11-28] MEDS: ASPIRIN 325 MG TABLET PO SCH (09:32)
[2022-11-28] MEDS: metFORMIN HCL 500 MG TABLET PO SCH ×2 (09:32→22:37)
[2022-11-28] MEDS: POTASSIUM CHLORIDE 10 MEQ TAB.PRT.SR PO SCH (09:32)
[2022-11-28] MEDS: FUROSEMIDE 20 MG TABLET PO SCH ×2 (09:33→22:37)
[2022-11-28] MEDS: cefTRIAXone 1 GM IVPB PREMIX 50 ML IV SCH (09:40)
[2022-11-28 10:39] LABS: ERYTHROCYTE SEDIMENTATION RATE 28 MM/HR (0-20)
[2022-11-28] MEDS: DOXYCYCLINE HYCLATE 100 MG in D5W 100 ML IV SCH ×2 (11:01→22:36)
[2022-11-28 12:05] VITALS: BP_SYST 154
[2022-11-28 15:20] VITALS: BP_SYST 157
[2022-11-28 20:30] VITALS: BP_SYST 137
[2022-11-28] MEDS: PRAMIPEXOLE DI-HCL 1 MG TABLET PO SCH (22:36)
[2022-11-28] MEDS: ATORVASTATIN 20 MG TABLET PO SCH (22:37)
[2022-11-28] MEDS: INSULIN REGULAR, HUMAN 100 UNITS/ML, 3 ML VIAL (humuLIN R) SUBCUT PRN (22:39)
[2022-11-28 23:57] VITALS: BP_SYST 162
[2022-11-29] MEDS: NORMAL SALINE 5 ML DISP.SYRIN IVF SCH ×3 (06:09→21:22)
[2022-11-29 07:59] LABS: BASOPHILS % (AUTO) 0.3 % (0.0-2.0); EOSINOPHILS # (AUTO) 0.2 K/uL (0.0-0.4); EOSINOPHILS % (AUTO) 1.9 % (0.0-4.0); HEMATOCRIT 42.8 % (36-48); HEMOGLOBIN 14.6 g/dL (12.0-16.0); LYMPHOCYTES # (AUTO) 0.9 K/uL (1.0-5.5); LYMPHOCYTES % (AUTO) 9.6 % (20.5-51.5); MEAN CORPUSCULAR HEMOGLOBIN 31 pg (27-31); MEAN CORPUSCULAR HGB CONC 34 % (32-36); MEAN CORPUSCULAR VOLUME 89 fL (79.0-98.0); MONOCYTES # (AUTO) 0.8 K/uL (0.0-1.0); MONOCYTES % (AUTO) 8.8 % (1.7-9.3); NEUTROPHILS # (AUTO) 7.1 K/uL (1.8-7.7); NEUTROPHILS % (AUTO) 79.4 % (40.0-70.0); PLATELET COUNT (AUTO) 214 K/uL (130-430); RED BLOOD CELL COUNT(AUTO) 4.78 MIL/uL (4.2-6.2); RED CELL DISTRIBUTION WIDTH 12.8 % (9.0-15.0); WHITE BLOOD COUNT (AUTO) 8.9 K/uL (4.8-10.8)
[2022-11-29 08:35] LABS: ERYTHROCYTE SEDIMENTATION RATE 36 MM/HR (0-20)
[2022-11-29] MEDS: cefTRIAXone 1 GM IVPB PREMIX 50 ML IV SCH (09:04)
[2022-11-29] MEDS: PRAMIPEXOLE DI-HCL 0.25 MG TABLET PO SCH (09:04)
[2022-11-29] MEDS: ASPIRIN 325 MG TABLET PO SCH (09:05)
[2022-11-29] MEDS: metFORMIN HCL 500 MG TABLET PO SCH ×2 (09:06→21:23)
[2022-11-29] MEDS: FUROSEMIDE 20 MG TABLET PO SCH ×2 (09:12→21:27)
[2022-11-29] MEDS: CLOPIDOGREL BISULFATE 75 MG TABLET PO SCH (09:51)
[2022-11-29 09:55] LABS: ALANINE AMINOTRANSFERASE 21 U/L (12-78); ALBUMIN 2.8 g/dL (3.4-4.8); ANION GAP 12 (5-15); ASPARTATE AMINOTRANSFERASE 18 U/L (10-37); C-REACTIVE PROTEIN QUANT 11.6 mg/dL (0-0.5); CALCIUM 9.4 mg/dL (8.4-11.0); CHLORIDE 102 mmol/L (98-107); CREATININE 1.11 mg/dL (0.55-1.30); GLUCOSE 112 mg/dL (70-99); TOTAL BILIRUBIN 0.4 mg/dL (0.0-1.0); UREA NITROGEN, BLOOD 27 mg/dL (8-21)
[2022-11-29 12:00] VITALS: BP_SYST 142
[2022-11-29] MEDS: DOXYCYCLINE HYCLATE 100 MG in D5W 100 ML IV SCH ×2 (12:15→21:23)
[2022-11-29 16:53] VITALS: BP_SYST 150
[2022-11-29 20:00] VITALS: BP_SYST 158
[2022-11-29] MEDS: PRAMIPEXOLE DI-HCL 1 MG TABLET PO SCH (21:23)
[2022-11-29] MEDS: ATORVASTATIN 20 MG TABLET PO SCH (21:23)
[2022-11-29] MEDS: DEXAMETHASONE SOD PHOSPHATE 10 MG/ML VIAL IVP SCH (21:24)
[2022-11-30] VITALS: BP_SYST 156
[2022-11-30] MEDS: NORMAL SALINE 5 ML DISP.SYRIN IVF SCH ×3 (06:10→20:42)
[2022-11-30] MEDS: INSULIN REGULAR, HUMAN 100 UNITS/ML, 3 ML VIAL (humuLIN R) SUBCUT PRN ×3 (06:11→20:43)
[2022-11-30 08:00] LABS: BASOPHILS % (AUTO) 0.1 % (0.0-2.0); HEMATOCRIT 39.4 % (36-48); HEMOGLOBIN 13.9 g/dL (12.0-16.0); LYMPHOCYTES # (AUTO) 0.6 K/uL (1.0-5.5); LYMPHOCYTES % (AUTO) 5.4 % (20.5-51.5); MEAN CORPUSCULAR HEMOGLOBIN 31 pg (27-31); MEAN CORPUSCULAR HGB CONC 35 % (32-36); MEAN CORPUSCULAR VOLUME 87 fL (79.0-98.0); MONOCYTES # (AUTO) 0.2 K/uL (0.0-1.0); MONOCYTES % (AUTO) 1.8 % (1.7-9.3); NEUTROPHILS # (AUTO) 9.7 K/uL (1.8-7.7); NEUTROPHILS % (AUTO) 92.7 % (40.0-70.0); PLATELET COUNT (AUTO) 218 K/uL (130-430); RED BLOOD CELL COUNT(AUTO) 4.52 MIL/uL (4.2-6.2); RED CELL DISTRIBUTION WIDTH 12.6 % (9.0-15.0); WHITE BLOOD COUNT (AUTO) 10.5 K/uL (4.8-10.8)
[2022-11-30 08:42] LABS: ALANINE AMINOTRANSFERASE 21 U/L (12-78); ALBUMIN 2.6 g/dL (3.4-4.8); ANION GAP 10 (5-15); ASPARTATE AMINOTRANSFERASE 16 U/L (10-37); C-REACTIVE PROTEIN QUANT 12.3 mg/dL (0-0.5); CALCIUM 9.1 mg/dL (8.4-11.0); CHLORIDE 100 mmol/L (98-107); CREATININE 1.26 mg/dL (0.55-1.30); GLUCOSE 164 mg/dL (70-99); TOTAL BILIRUBIN 0.3 mg/dL (0.0-1.0); UREA NITROGEN, BLOOD 34 mg/dL (8-21)
[2022-11-30 09:30] LABS: ERYTHROCYTE SEDIMENTATION RATE 45 MM/HR (0-20)
[2022-11-30] MEDS: cefTRIAXone 1 GM IVPB PREMIX 50 ML IV SCH (09:30)
[2022-11-30] MEDS: CLOPIDOGREL BISULFATE 75 MG TABLET PO SCH (09:31)
[2022-11-30] MEDS: metFORMIN HCL 500 MG TABLET PO SCH ×2 (09:31→20:41)
[2022-11-30] MEDS: DOXYCYCLINE HYCLATE 100 MG in D5W 100 ML IV SCH ×2 (09:31→20:41)
[2022-11-30] MEDS: ASPIRIN 325 MG TABLET PO SCH (09:31)
[2022-11-30] MEDS: PRAMIPEXOLE DI-HCL 0.25 MG TABLET PO SCH (09:32)
[2022-11-30] MEDS: POTASSIUM CHLORIDE 10 MEQ TAB.PRT.SR PO SCH (09:32)
[2022-11-30] MEDS: FUROSEMIDE 20 MG TABLET PO SCH ×2 (09:32→20:42)
[2022-11-30 11:51] VITALS: BP_SYST 156
[2022-11-30 17:05] VITALS: BP_SYST 144
[2022-11-30 20:00] VITALS: BP_SYST 161
[2022-11-30] MEDS: ATORVASTATIN 20 MG TABLET PO SCH (20:41)
[2022-11-30] MEDS: DEXAMETHASONE SOD PHOSPHATE 10 MG/ML VIAL IVP SCH (20:41)
[2022-11-30] MEDS: PRAMIPEXOLE DI-HCL 1 MG TABLET PO SCH (20:42)
[2022-12-01 00:27] VITALS: BP_SYST 140
[2022-12-01] MEDS: NORMAL SALINE 5 ML DISP.SYRIN IVF SCH ×3 (05:58→21:30)
[2022-12-01] MEDS: cefTRIAXone 1 GM IVPB PREMIX 50 ML IV SCH (08:43)
[2022-12-01] MEDS: DOXYCYCLINE HYCLATE 100 MG in D5W 100 ML IV SCH ×2 (08:43→21:30)
[2022-12-01] MEDS: FUROSEMIDE 20 MG TABLET PO SCH ×2 (08:44→21:29)
[2022-12-01] MEDS: PRAMIPEXOLE DI-HCL 0.25 MG TABLET PO SCH (08:44)
[2022-12-01] MEDS: ASPIRIN 325 MG TABLET PO SCH (08:44)
[2022-12-01] MEDS: CLOPIDOGREL BISULFATE 75 MG TABLET PO SCH (08:44)
[2022-12-01] MEDS: metFORMIN HCL 500 MG TABLET PO SCH ×2 (08:45→21:29)
[2022-12-01 09:31] LABS: BASOPHILS % (AUTO) 0.1 % (0.0-2.0); HEMATOCRIT 40.1 % (36-48); HEMOGLOBIN 13.8 g/dL (12.0-16.0); LYMPHOCYTES # (AUTO) 0.8 K/uL (1.0-5.5); LYMPHOCYTES % (AUTO) 6.3 % (20.5-51.5); MEAN CORPUSCULAR HEMOGLOBIN 31 pg (27-31); MEAN CORPUSCULAR HGB CONC 35 % (32-36); MEAN CORPUSCULAR VOLUME 89 fL (79.0-98.0); MONOCYTES # (AUTO) 0.3 K/uL (0.0-1.0); MONOCYTES % (AUTO) 2.5 % (1.7-9.3); NEUTROPHILS # (AUTO) 11.9 K/uL (1.8-7.7); NEUTROPHILS % (AUTO) 91.1 % (40.0-70.0); PLATELET COUNT (AUTO) 264 K/uL (130-430); RED BLOOD CELL COUNT(AUTO) 4.49 MIL/uL (4.2-6.2); RED CELL DISTRIBUTION WIDTH 12.9 % (9.0-15.0)
[2022-12-01 09:36] LABS: ANION GAP 9 (5-15); CALCIUM 9.2 mg/dL (8.4-11.0); CHLORIDE 99 mmol/L (98-107); GLUCOSE 199 mg/dL (70-99); UREA NITROGEN, BLOOD 44 mg/dL (8-21)
[2022-12-01 09:37] LABS: ALANINE AMINOTRANSFERASE 17 U/L (12-78); ALBUMIN 2.8 g/dL (3.4-4.8); ASPARTATE AMINOTRANSFERASE 13 U/L (10-37); C-REACTIVE PROTEIN QUANT 8.6 mg/dL (0-0.5); CREATININE 1.39 mg/dL (0.55-1.30); TOTAL BILIRUBIN 0.3 mg/dL (0.0-1.0)
[2022-12-01 10:31] LABS: ERYTHROCYTE SEDIMENTATION RATE 49 MM/HR (0-20)
[2022-12-01] MEDS: INSULIN REGULAR, HUMAN 100 UNITS/ML, 3 ML VIAL (humuLIN R) SUBCUT PRN ×2 (12:21→18:37)
[2022-12-01 13:36] VITALS: BP_SYST 119
[2022-12-01 17:22] VITALS: BP_SYST 119
[2022-12-01] MEDS ORDERED: ASA81 PO (17:43)
[2022-12-01] MEDS ORDERED: PRAM0.5T3 PO (17:43)
[2022-12-01] MEDS ORDERED: FURO20TA4 PO (17:43)
[2022-12-01] MEDS ORDERED: PRAM1TAB4 PO (17:43)
[2022-12-01] MEDS ORDERED: POTA10TA PO (17:43)
[2022-12-01] MEDS ORDERED: METF-1069 PO (17:43)
[2022-12-01] MEDS ORDERED: METF-381 PO (17:43)
[2022-12-01] MEDS ORDERED: METF-834 PO (17:43)
[2022-12-01 20:00] VITALS: BP_SYST 155
[2022-12-01] MEDS: DEXAMETHASONE SOD PHOSPHATE 10 MG/ML VIAL IVP SCH (21:29)
[2022-12-01] MEDS: PRAMIPEXOLE DI-HCL 1 MG TABLET PO SCH (21:29)
[2022-12-01] MEDS: ATORVASTATIN 20 MG TABLET PO SCH (21:29)
[2022-12-02 01:19] VITALS: BP_SYST 164
[2022-12-02] MEDS: NORMAL SALINE 5 ML DISP.SYRIN IVF SCH ×3 (06:13→22:06)
[2022-12-02] MEDS: INSULIN REGULAR, HUMAN 100 UNITS/ML, 3 ML VIAL (humuLIN R) SUBCUT PRN ×4 (06:14→22:17)
[2022-12-02 08:00] VITALS: BP_SYST 109
[2022-12-02 08:31] LABS: BASOPHILS % (AUTO) 0.1 % (0.0-2.0); HEMATOCRIT 39.4 % (36-48); HEMOGLOBIN 13.3 g/dL (12.0-16.0); LYMPHOCYTES # (AUTO) 0.8 K/uL (1.0-5.5); LYMPHOCYTES % (AUTO) 9.1 % (20.5-51.5); MEAN CORPUSCULAR HEMOGLOBIN 30 pg (27-31); MEAN CORPUSCULAR HGB CONC 34 % (32-36); MEAN CORPUSCULAR VOLUME 89 fL (79.0-98.0); MONOCYTES # (AUTO) 0.3 K/uL (0.0-1.0); MONOCYTES % (AUTO) 3.2 % (1.7-9.3); NEUTROPHILS # (AUTO) 7.6 K/uL (1.8-7.7); NEUTROPHILS % (AUTO) 87.6 % (40.0-70.0); PLATELET COUNT (AUTO) 305 K/uL (130-430); RED BLOOD CELL COUNT(AUTO) 4.45 MIL/uL (4.2-6.2); RED CELL DISTRIBUTION WIDTH 12.9 % (9.0-15.0); WHITE BLOOD COUNT (AUTO) 8.7 K/uL (4.8-10.8)
[2022-12-02 08:48] LABS: ERYTHROCYTE SEDIMENTATION RATE 35 MM/HR (0-20)
[2022-12-02] MEDS: DOXYCYCLINE HYCLATE 100 MG in D5W 100 ML IV SCH ×2 (10:06→21:56)
[2022-12-02] MEDS: POTASSIUM CHLORIDE 10 MEQ TAB.PRT.SR PO SCH (10:07)
[2022-12-02] MEDS: ASPIRIN 325 MG TABLET PO SCH (10:07)
[2022-12-02] MEDS: PRAMIPEXOLE DI-HCL 0.25 MG TABLET PO SCH (10:07)
[2022-12-02] MEDS: metFORMIN HCL 500 MG TABLET PO SCH ×2 (10:07→21:55)
[2022-12-02] MEDS: CLOPIDOGREL BISULFATE 75 MG TABLET PO SCH (10:07)
[2022-12-02] MEDS: FUROSEMIDE 20 MG TABLET PO SCH ×2 (10:19→21:55)
[2022-12-02 10:20] LABS: ANION GAP 4 (5-15); C-REACTIVE PROTEIN QUANT 4.4 mg/dL (0-0.5); CALCIUM 8.9 mg/dL (8.4-11.0); CHLORIDE 94 mmol/L (98-107); CREATININE 1.22 mg/dL (0.55-1.30); GLUCOSE 166 mg/dL (70-99); UREA NITROGEN, BLOOD 48 mg/dL (8-21)
[2022-12-02 11:31] VITALS: BP_SYST 148
[2022-12-02 16:52] VITALS: BP_SYST 141
[2022-12-02 19:52] VITALS: BP_SYST 124
[2022-12-02] MEDS: DEXAMETHASONE SOD PHOSPHATE 10 MG/ML VIAL IVP SCH (21:54)
[2022-12-02] MEDS: ATORVASTATIN 20 MG TABLET PO SCH (21:55)
[2022-12-02] MEDS: PRAMIPEXOLE DI-HCL 1 MG TABLET PO SCH (22:14)
[2022-12-03 01:39] VITALS: BP_SYST 115
[2022-12-03 06:22] LABS: ANION GAP 10 (5-15); C-REACTIVE PROTEIN QUANT 2.2 mg/dL (0-0.5); CALCIUM 8.6 mg/dL (8.4-11.0); CHLORIDE 98 mmol/L (98-107); CREATININE 1.49 mg/dL (0.55-1.30); GLUCOSE 322 mg/dL (70-99); UREA NITROGEN, BLOOD 55 mg/dL (8-21)
[2022-12-03] MEDS: NORMAL SALINE 5 ML DISP.SYRIN IVF SCH ×3 (06:33→23:04)
[2022-12-03 06:35] LABS: BASOPHILS % (AUTO) 0.1 % (0.0-2.0); HEMOGLOBIN 12.7 g/dL (12.0-16.0); LYMPHOCYTES # (AUTO) 0.6 K/uL (1.0-5.5); LYMPHOCYTES % (AUTO) 7.8 % (20.5-51.5); MEAN CORPUSCULAR HEMOGLOBIN 30 pg (27-31); MEAN CORPUSCULAR HGB CONC 33 % (32-36); MEAN CORPUSCULAR VOLUME 89 fL (79.0-98.0); MONOCYTES # (AUTO) 0.3 K/uL (0.0-1.0); MONOCYTES % (AUTO) 3.2 % (1.7-9.3); NEUTROPHILS # (AUTO) 7.1 K/uL (1.8-7.7); NEUTROPHILS % (AUTO) 88.9 % (40.0-70.0); PLATELET COUNT (AUTO) 319 K/uL (130-430); RED BLOOD CELL COUNT(AUTO) 4.28 MIL/uL (4.2-6.2); RED CELL DISTRIBUTION WIDTH 12.8 % (9.0-15.0)
[2022-12-03] MEDS: INSULIN REGULAR, HUMAN 100 UNITS/ML, 3 ML VIAL (humuLIN R) SUBCUT PRN ×2 (06:50→11:32)
[2022-12-03 07:15] LABS: ERYTHROCYTE SEDIMENTATION RATE 31 MM/HR (0-20)
[2022-12-03 08:00] VITALS: BP_SYST 104
[2022-12-03] MEDS: ASPIRIN 325 MG TABLET PO SCH (09:19)
[2022-12-03] MEDS: FUROSEMIDE 20 MG TABLET PO SCH ×2 (09:19→22:41)
[2022-12-03] MEDS: PRAMIPEXOLE DI-HCL 0.25 MG TABLET PO SCH (09:19)
[2022-12-03] MEDS: metFORMIN HCL 500 MG TABLET PO SCH ×2 (09:19→21:00)
[2022-12-03] MEDS: CLOPIDOGREL BISULFATE 75 MG TABLET PO SCH (09:20)
[2022-12-03 11:32] VITALS: BP_SYST 116
[2022-12-03 16:51] VITALS: BP_SYST 122
[2022-12-03] MEDS: DEXAMETHASONE SOD PHOSPHATE 10 MG/ML VIAL IVP SCH (20:00)
[2022-12-03] MEDS: ATORVASTATIN 20 MG TABLET PO SCH (21:00)
[2022-12-03 22:36] VITALS: BP_SYST 148
[2022-12-03] MEDS: PRAMIPEXOLE DI-HCL 1 MG TABLET PO SCH (23:03)
[2022-12-04 05:29] VITALS: BP_SYST 144
[2022-12-04] MEDS: NORMAL SALINE 5 ML DISP.SYRIN IVF SCH ×3 (06:36→21:03)
[2022-12-04] MEDS: INSULIN REGULAR, HUMAN 100 UNITS/ML, 3 ML VIAL (humuLIN R) SUBCUT PRN ×2 (06:44→21:44)
[2022-12-04 07:14] LABS: HEMOGLOBIN 13.4 g/dL (12.0-16.0); LYMPHOCYTES # (AUTO) 0.8 K/uL (1.0-5.5); LYMPHOCYTES % (AUTO) 9.7 % (20.5-51.5); MEAN CORPUSCULAR HEMOGLOBIN 30 pg (27-31); MEAN CORPUSCULAR HGB CONC 34 % (32-36); MEAN CORPUSCULAR VOLUME 89 fL (79.0-98.0); MONOCYTES # (AUTO) 0.2 K/uL (0.0-1.0); MONOCYTES % (AUTO) 2.5 % (1.7-9.3); NEUTROPHILS # (AUTO) 7.5 K/uL (1.8-7.7); NEUTROPHILS % (AUTO) 87.8 % (40.0-70.0); PLATELET COUNT (AUTO) 340 K/uL (130-430); RED BLOOD CELL COUNT(AUTO) 4.51 MIL/uL (4.2-6.2); RED CELL DISTRIBUTION WIDTH 12.7 % (9.0-15.0); WHITE BLOOD COUNT (AUTO) 8.6 K/uL (4.8-10.8)
[2022-12-04 08:00] VITALS: BP_SYST 126
[2022-12-04 08:03] LABS: ALANINE AMINOTRANSFERASE 24 U/L (12-78); ALBUMIN 2.7 g/dL (3.4-4.8); ANION GAP 6 (5-15); ASPARTATE AMINOTRANSFERASE 14 U/L (10-37); CALCIUM 8.6 mg/dL (8.4-11.0); CHLORIDE 98 mmol/L (98-107); CREATININE 1.52 mg/dL (0.55-1.30); GLUCOSE 207 mg/dL (70-99); TOTAL BILIRUBIN 0.4 mg/dL (0.0-1.0); UREA NITROGEN, BLOOD 52 mg/dL (8-21)
[2022-12-04] MEDS: CLOPIDOGREL BISULFATE 75 MG TABLET PO SCH (08:23)
[2022-12-04] MEDS: POTASSIUM CHLORIDE 10 MEQ TAB.PRT.SR PO SCH (08:23)
[2022-12-04] MEDS: ASPIRIN 325 MG TABLET PO SCH (08:23)
[2022-12-04] MEDS: PRAMIPEXOLE DI-HCL 0.25 MG TABLET PO SCH (08:23)
[2022-12-04] MEDS: FUROSEMIDE 20 MG TABLET PO SCH ×2 (08:23→21:01)
[2022-12-04] MEDS: metFORMIN HCL 500 MG TABLET PO SCH ×2 (08:24→21:03)
[2022-12-04 12:30] VITALS: BP_SYST 106
[2022-12-04] MEDS ORDERED: D5/0.45 NS 1,000 ML IV SCH (14:30)
[2022-12-04] MEDS: NACL 0.9% 1,000 ML IV SCH (17:46)
[2022-12-04 18:25] VITALS: BP_SYST 106
[2022-12-04] MEDS: ATORVASTATIN 20 MG TABLET PO SCH (21:03)
[2022-12-04] MEDS: PRAMIPEXOLE DI-HCL 1 MG TABLET PO SCH (21:03)
[2022-12-04] MEDS: DEXAMETHASONE SOD PHOSPHATE 10 MG/ML VIAL IVP SCH (21:03)
[2022-12-05 00:15] VITALS: BP_SYST 129
[2022-12-05] MEDS: NACL 0.9% 1,000 ML IV SCH ×3 (03:34→23:45)
[2022-12-05] MEDS: NORMAL SALINE 5 ML DISP.SYRIN IVF SCH ×3 (06:21→22:00)
[2022-12-05] MEDS: INSULIN REGULAR, HUMAN 100 UNITS/ML, 3 ML VIAL (humuLIN R) SUBCUT PRN ×2 (06:23→21:40)
[2022-12-05 07:58] LABS: BASOPHILS % (AUTO) 0.1 % (0.0-2.0); HEMATOCRIT 40.4 % (36-48); HEMOGLOBIN 13.4 g/dL (12.0-16.0); LYMPHOCYTES # (AUTO) 0.7 K/uL (1.0-5.5); LYMPHOCYTES % (AUTO) 7.4 % (20.5-51.5); MEAN CORPUSCULAR HEMOGLOBIN 29 pg (27-31); MEAN CORPUSCULAR HGB CONC 33 % (32-36); MEAN CORPUSCULAR VOLUME 89 fL (79.0-98.0); MONOCYTES # (AUTO) 0.2 K/uL (0.0-1.0); MONOCYTES % (AUTO) 2.3 % (1.7-9.3); NEUTROPHILS # (AUTO) 8.4 K/uL (1.8-7.7); NEUTROPHILS % (AUTO) 90.2 % (40.0-70.0); PLATELET COUNT (AUTO) 338 K/uL (130-430); RED BLOOD CELL COUNT(AUTO) 4.56 MIL/uL (4.2-6.2); RED CELL DISTRIBUTION WIDTH 12.6 % (9.0-15.0); WHITE BLOOD COUNT (AUTO) 9.3 K/uL (4.8-10.8)
[2022-12-05 08:00] VITALS: BP_SYST 114
[2022-12-05 08:21] LABS: ALANINE AMINOTRANSFERASE 22 U/L (12-78); ALBUMIN 2.6 g/dL (3.4-4.8); ANION GAP 10 (5-15); ASPARTATE AMINOTRANSFERASE 13 U/L (10-37); C-REACTIVE PROTEIN QUANT 0.5 mg/dL (0-0.5); CALCIUM 8.4 mg/dL (8.4-11.0); CHLORIDE 100 mmol/L (98-107); GLUCOSE 228 mg/dL (70-99); PHOSPHORUS 4.6 mg/dL (2.7-4.5); TOTAL BILIRUBIN 0.4 mg/dL (0.0-1.0); UREA NITROGEN, BLOOD 50 mg/dL (8-21)
[2022-12-05] MEDS: ASPIRIN 325 MG TABLET PO SCH (08:53)
[2022-12-05] MEDS: CLOPIDOGREL BISULFATE 75 MG TABLET PO SCH (08:53)
[2022-12-05] MEDS: PRAMIPEXOLE DI-HCL 0.25 MG TABLET PO SCH (08:54)
[2022-12-05] MEDS: FUROSEMIDE 20 MG TABLET PO SCH ×2 (08:54→21:37)
[2022-12-05] MEDS: metFORMIN HCL 500 MG TABLET PO SCH (08:54)
[2022-12-05 10:44] LABS: ERYTHROCYTE SEDIMENTATION RATE 22 MM/HR (0-20)
[2022-12-05 11:17] VITALS: BP_SYST 137
[2022-12-05] MEDS ORDERED: LORazepam 1 MG TABLET PO ONE (11:30)
[2022-12-05 15:47] VITALS: BP_SYST 107
[2022-12-05 20:00] VITALS: BP_SYST 133
[2022-12-05] MEDS: PRAMIPEXOLE DI-HCL 1 MG TABLET PO SCH (21:00)
[2022-12-05] MEDS: ATORVASTATIN 20 MG TABLET PO SCH (21:37)
[2022-12-05] MEDS: DEXAMETHASONE SOD PHOSPHATE 10 MG/ML VIAL IVP SCH (21:38)
[2022-12-06] VITALS (9 sets, daily range): BP systolic 122–153
[2022-12-06] MEDS: NORMAL SALINE 5 ML DISP.SYRIN IVF SCH ×3 (06:00→20:51)
[2022-12-06 06:01] LABS: BASOPHILS % (AUTO) 0.2 % (0.0-2.0); HEMATOCRIT 38.3 % (36-48); HEMOGLOBIN 12.9 g/dL (12.0-16.0); LYMPHOCYTES # (AUTO) 0.9 K/uL (1.0-5.5); LYMPHOCYTES % (AUTO) 8.1 % (20.5-51.5); MEAN CORPUSCULAR HEMOGLOBIN 30 pg (27-31); MEAN CORPUSCULAR HGB CONC 34 % (32-36); MEAN CORPUSCULAR VOLUME 88 fL (79.0-98.0); MONOCYTES # (AUTO) 0.6 K/uL (0.0-1.0); MONOCYTES % (AUTO) 5.1 % (1.7-9.3); NEUTROPHILS # (AUTO) 9.8 K/uL (1.8-7.7); NEUTROPHILS % (AUTO) 86.6 % (40.0-70.0); PLATELET COUNT (AUTO) 301 K/uL (130-430); RED BLOOD CELL COUNT(AUTO) 4.34 MIL/uL (4.2-6.2); RED CELL DISTRIBUTION WIDTH 12.6 % (9.0-15.0); WHITE BLOOD COUNT (AUTO) 11.3 K/uL (4.8-10.8)
[2022-12-06] MEDS: INSULIN REGULAR, HUMAN 100 UNITS/ML, 3 ML VIAL (humuLIN R) SUBCUT PRN ×3 (06:26→20:48)
[2022-12-06 06:28] LABS: ANION GAP 5 (5-15); C-REACTIVE PROTEIN QUANT 0.2 mg/dL (0-0.5); CALCIUM 8.2 mg/dL (8.4-11.0); CHLORIDE 101 mmol/L (98-107); CREATININE 1.29 mg/dL (0.55-1.30); GLUCOSE 190 mg/dL (70-99); PHOSPHORUS 3.1 mg/dL (2.7-4.5); THYROID STIMULATING HORMONE 0.03 uIu/mL (0.34-4.82); UREA NITROGEN, BLOOD 47 mg/dL (8-21)
[2022-12-06 07:41] LABS: ERYTHROCYTE SEDIMENTATION RATE 13 MM/HR (0-20)
[2022-12-06] MEDS: ASPIRIN 325 MG TABLET PO SCH (09:24)
[2022-12-06] MEDS: PRAMIPEXOLE DI-HCL 0.25 MG TABLET PO SCH (09:24)
[2022-12-06] MEDS: POTASSIUM CHLORIDE 10 MEQ TAB.PRT.SR PO SCH (09:24)
[2022-12-06] MEDS: FUROSEMIDE 20 MG TABLET PO SCH ×2 (09:25→20:32)
[2022-12-06] MEDS: CLOPIDOGREL BISULFATE 75 MG TABLET PO SCH (09:25)
[2022-12-06] MEDS: NACL 0.9% 1,000 ML IV SCH (11:56)
[2022-12-06] MEDS: DEXAMETHASONE SOD PHOSPHATE 10 MG/ML VIAL IVP SCH (20:31)
[2022-12-06] MEDS: ATORVASTATIN 20 MG TABLET PO SCH (20:33)
[2022-12-06] MEDS: PRAMIPEXOLE DI-HCL 1 MG TABLET PO SCH (20:33)
[2022-12-07] VITALS: BP_SYST 146
[2022-12-07] MEDS: NACL 0.9% 1,000 ML IV SCH (05:00)
[2022-12-07] MEDS: NORMAL SALINE 5 ML DISP.SYRIN IVF SCH (05:54)
[2022-12-07] MEDS: INSULIN REGULAR, HUMAN 100 UNITS/ML, 3 ML VIAL (humuLIN R) SUBCUT PRN (06:02)
[2022-12-07 06:58] LABS: ANION GAP 8 (5-15); CALCIUM 8.6 mg/dL (8.4-11.0); CHLORIDE 100 mmol/L (98-107); CREATININE 1.37 mg/dL (0.55-1.30); GLUCOSE 231 mg/dL (70-99); PHOSPHORUS 3.7 mg/dL (2.7-4.5)
[2022-12-07 07:02] LABS: BASOPHILS % (AUTO) 0.1 % (0.0-2.0); HEMATOCRIT 40.6 % (36-48); HEMOGLOBIN 14.1 g/dL (12.0-16.0); LYMPHOCYTES # (AUTO) 0.7 K/uL (1.0-5.5); LYMPHOCYTES % (AUTO) 6.9 % (20.5-51.5); MEAN CORPUSCULAR HEMOGLOBIN 31 pg (27-31); MEAN CORPUSCULAR HGB CONC 35 % (32-36); MEAN CORPUSCULAR VOLUME 88 fL (79.0-98.0); MONOCYTES # (AUTO) 0.3 K/uL (0.0-1.0); MONOCYTES % (AUTO) 2.8 % (1.7-9.3); NEUTROPHILS # (AUTO) 8.6 K/uL (1.8-7.7); NEUTROPHILS % (AUTO) 90.2 % (40.0-70.0); PLATELET COUNT (AUTO) 305 K/uL (130-430); RED BLOOD CELL COUNT(AUTO) 4.62 MIL/uL (4.2-6.2); RED CELL DISTRIBUTION WIDTH 12.5 % (9.0-15.0); WHITE BLOOD COUNT (AUTO) 9.6 K/uL (4.8-10.8)
[2022-12-07 07:46] LABS: UREA NITROGEN, BLOOD 45 mg/dL (8-21)
[2022-12-07 07:57] LABS: C-REACTIVE PROTEIN QUANT < 0.2 mg/dL (0-0.5)
[2022-12-07 08:08] VITALS: BP_SYST 142
[2022-12-07 08:17] VITALS: BP_SYST 142
[2022-12-07] MEDS: PRAMIPEXOLE DI-HCL 0.25 MG TABLET PO SCH (08:29)
[2022-12-07] MEDS: ASPIRIN 325 MG TABLET PO SCH (08:29)
[2022-12-07] MEDS: FUROSEMIDE 20 MG TABLET PO SCH (08:29)
[2022-12-07] MEDS: CLOPIDOGREL BISULFATE 75 MG TABLET PO SCH (08:29)
[2022-12-07 08:55] LABS: ERYTHROCYTE SEDIMENTATION RATE 18 MM/HR (0-20)
[2022-12-07 10:57] VITALS: BP_SYST 133
== END 2022-12-07 13:00 | DRG 871 ==
LOC: SED 16:16 → SMU 22:38 → STU 23:51 → SIC 11-28 17:30 → STU 11-28 17:59 → SMU 11-29 11:39 → STU 12-05 21:59
PROVIDERS: ADMIT Preventive Medicine Preventive Medicine/Occupational Environmental Medicine; ATTEND Preventive Medicine Preventive Medicine/Occupational Environmental Medicine
PROC: XW033E5 Introduction of Remdesivir Anti-infective into Peripheral Vein, Percutaneous Approach, New Technology Group 5 (ICD-10-PCS; principal; 2022-11-27)
DX: A41.9 Sepsis, unspecified organism (principal); E43 Unspecified severe protein-calorie malnutrition; J96.01 Acute respiratory failure with hypoxia; U07.1 COVID-19; N17.0 Acute kidney failure with tubular necrosis; E87.1 Hypo-osmolality and hyponatremia; N39.0 Urinary tract infection, site not specified; D64.9 Anemia, unspecified; G40.909 Epilepsy, unspecified, not intractable, without status epilepticus; E88.09 Other disorders of plasma-protein metabolism, not elsewhere classified; E78.5 Hyperlipidemia, unspecified; E83.39 Other disorders of phosphorus metabolism; R79.89 Other specified abnormal findings of blood chemistry; K21.9 Gastro-esophageal reflux disease without esophagitis; E11.65 Type 2 diabetes mellitus with hyperglycemia; E03.9 Hypothyroidism, unspecified; R53.81 Other malaise; E83.51 Hypocalcemia; B96.89 Other specified bacterial agents as the cause of diseases classified elsewhere; I12.9 Hypertensive chronic kidney disease with stage 1 through stage 4 chronic kidney disease, or unspecified chronic kidney disease; E11.22 Type 2 diabetes mellitus with diabetic chronic kidney disease; N18.9 Chronic kidney disease, unspecified; Z86.73 Personal history of transient ischemic attack (TIA), and cerebral infarction without residual deficits; Z79.82 Long term (current) use of aspirin; Z79.899 Other long term (current) drug therapy; Z79.01 Long term (current) use of anticoagulants; Z79.4 Long term (current) use of insulin; Z78.9 Other specified health status; Z68.25 Body mass index [BMI] 25.0-25.9, adult
CPT/HCPCS: 36415; 70450-TC; 71045; 76376; 76770; 80048; 80053; 81000; 83037; 83605; 83690; 83735; 83880; 84100; 84443; 84484; 85025; 85651-TC; 86140; 87040; 87081; 87086; 93005; 93306; 96361; 96365; 97110-GP; 97112-GP; 97116-GP; 97163-GP; 97530-GP; 99285; G0378; J0696; J1100; J1815; J2060; J2405; J3490; J7050; J7060

== ENCOUNTER 2023-08-26 12:52 | Inpatient (IN) | payer OTHER ==
[~2023-08-26] VITALS: Ht 165.1 cm; Wt 75.0 kg
[~2023-08-26 12:52] MED LIST changes: +ASA81 PO; -ASPI-858 PO; -ATEN50TA PO; -CEL20 PO; -DULO60CA42 PO; +FURO20TA4 PO; +METF-1069 PO; -METF-518 PO; +METF-834 PO; +POTA-217 PO; +PRAM0.5T3 PO; -TRAZ-251 PO
[2023-08-26 13:00] VITALS: BP_SYST 172; PULSE 84; RESP 18; TEMP 97; O2SAT 96
[2023-08-26] MEDS ORDERED: ONDANSETRON 4 MG ODT TAB PO ONE (13:45)
[2023-08-26 14:40] LABS: BASOPHILS % (AUTO) 0.4 % (0.0-2.0); EOSINOPHILS # (AUTO) 0.1 K/uL (0.0-0.4); EOSINOPHILS % (AUTO) 0.7 % (0.0-4.0); HEMATOCRIT 40.4 % (36-48); HEMOGLOBIN 13.4 g/dL (12.0-16.0); LYMPHOCYTES # (AUTO) 0.9 K/uL (1.0-5.5); LYMPHOCYTES % (AUTO) 11.2 % (20.5-51.5); MEAN CORPUSCULAR HEMOGLOBIN 30 pg (27-31); MEAN CORPUSCULAR HGB CONC 33 % (32-36); MEAN CORPUSCULAR VOLUME 90 fL (79.0-98.0); MONOCYTES # (AUTO) 0.5 K/uL (0.0-1.0); MONOCYTES % (AUTO) 6.5 % (1.7-9.3); NEUTROPHILS # (AUTO) 6.5 K/uL (1.8-7.7); NEUTROPHILS % (AUTO) 81.2 % (40.0-70.0); PLATELET COUNT (AUTO) 219 K/uL (130-430); RED CELL DISTRIBUTION WIDTH 13.7 % (9.0-15.0)
[2023-08-26 14:54] LABS: ANION GAP 9 (5-15); CARBON DIOXIDE 30 mmol/L (23-29); CHLORIDE 99 mmol/L (98-107); CREATININE 1.83 mg/dL (0.55-1.30); GLUCOSE 99 mg/dL (74-106); POTASSIUM 4.1 mmol/L (3.5-5.1); SODIUM SERUM 138 mmol/L (136-145); UREA NITROGEN, BLOOD 33 mg/dL (8-21)
[2023-08-26 15:10] LABS: ALANINE AMINOTRANSFERASE 18 U/L (12-78); ALBUMIN 3.3 g/dL (3.4-4.8); AMYLASE 65 U/L (0-100); ASPARTATE AMINOTRANSFERASE 14 U/L (10-37); LIPASE 29 U/L (16-77); TOTAL BILIRUBIN 0.3 mg/dL (0.0-1.0); TOTAL PROTEIN, SERUM 6.9 g/dL (6.4-8.3)
[2023-08-26 15:26] LABS: ACETONE, SERUM NEGATIVE (NEGATIVE)
[2023-08-26 15:59] LABS: BILIRUBIN,URINE NEGATIVE (NEGATIVE); COLOR,URINE YELLOW (YELLOW); GLUCOSE,URINE NEGATIVE (NEGATIVE); KETONES,URINE NEGATIVE (NEGATIVE); LEUKOCYTE ESTERASE ,URINE 3+ (NEGATIVE); NITRITE, URINE POSITIVE (NEGATIVE); PH,URINE 5.5 (5.0-8.0); PROTEIN URINE NEGATIVE (NEGATIVE); UROBILINOGEN,URINE 0.2 (0.2-1.0)
[2023-08-26 16:08] LABS: BLOOD, URINE TRACE (NEGATIVE); CLARITY/URINE HAZY (CLEAR); RBC,URINE 0-3 /HPF (0-3); WBC,URINE 80-100 /HPF (0-3)
[2023-08-26 16:09] LABS: BACTERIA,URINE MODERATE /HPF (None Seen); MUCUS,URINE None Seen /LPF (None Seen)
[2023-08-26] MEDS: D5/0.45 NS 1,000 ML IV SCH (18:43)
[2023-08-26 20:00] VITALS: BP_SYST 136; PULSE 85; RESP 16; TEMP 97.6; O2SAT 96
[2023-08-26] MEDS ORDERED: PIPERACILLIN/TAZO 3.375 GM in NS 50 ML IV ONE (22:00)
[2023-08-26] MEDS ORDERED: PIPERACILLIN/TAZOBACTAM 3.375 GM/VIAL (ZOSYN) IV ONE (22:54)
[2023-08-27 01:51] VITALS: BP_SYST 139; PULSE 87; RESP 17; TEMP 97.8; O2SAT 95
[2023-08-27 08:00] VITALS: BP_SYST 144; PULSE 83; RESP 15; TEMP 97.5; O2SAT 100
[2023-08-27 08:19] LABS: BASOPHILS % (AUTO) 0.4 % (0.0-2.0); EOSINOPHILS # (AUTO) 0.1 K/uL (0.0-0.4); EOSINOPHILS % (AUTO) 1.1 % (0.0-4.0); HEMATOCRIT 37.6 % (36-48); HEMOGLOBIN 12.1 g/dL (12.0-16.0); LYMPHOCYTES # (AUTO) 0.7 K/uL (1.0-5.5); LYMPHOCYTES % (AUTO) 14.2 % (20.5-51.5); MEAN CORPUSCULAR HEMOGLOBIN 29 pg (27-31); MEAN CORPUSCULAR HGB CONC 32 % (32-36); MEAN CORPUSCULAR VOLUME 91 fL (79.0-98.0); MONOCYTES # (AUTO) 0.4 K/uL (0.0-1.0); MONOCYTES % (AUTO) 7.8 % (1.7-9.3); NEUTROPHILS % (AUTO) 76.5 % (40.0-70.0); PLATELET COUNT (AUTO) 205 K/uL (130-430); RED BLOOD CELL COUNT(AUTO) 4.15 MIL/uL (4.2-6.2); RED CELL DISTRIBUTION WIDTH 13.6 % (9.0-15.0); WHITE BLOOD COUNT (AUTO) 5.2 K/uL (4.8-10.8)
[2023-08-27 08:29] LABS: ANION GAP 6 (5-15); CALCIUM 9.1 mg/dL (8.4-11.0); CARBON DIOXIDE 32 mmol/L (23-29); CHLORIDE 102 mmol/L (98-107); CREATININE 1.82 mg/dL (0.55-1.30); GLUCOSE 216 mg/dL (74-106); POTASSIUM 4.1 mmol/L (3.5-5.1); SODIUM SERUM 140 mmol/L (136-145); UREA NITROGEN, BLOOD 30 mg/dL (8-21)
[2023-08-27 08:34] LABS: ALANINE AMINOTRANSFERASE 15 U/L (12-78); ASPARTATE AMINOTRANSFERASE 14 U/L (10-37); TOTAL BILIRUBIN 0.3 mg/dL (0.0-1.0); TOTAL PROTEIN, SERUM 6.2 g/dL (6.4-8.3)
[2023-08-27] MEDS: D5/0.45 NS 1,000 ML IV SCH ×2 (10:49→22:38)
[2023-08-27 11:40] VITALS: BP_SYST 148; PULSE 70; RESP 16; TEMP 97.6; O2SAT 94
[2023-08-27] MEDS: PRAMIPEXOLE DI-HCL 1 MG TABLET PO SCH (18:11)
[2023-08-27] MEDS: ALPRAZolam 0.25 MG TABLET PO PRN (18:11)
[2023-08-27 18:24] VITALS: BP_SYST 154; PULSE 87; RESP 21; TEMP 98.4; O2SAT 93
[2023-08-27 20:00] VITALS: BP_SYST 129; PULSE 68; RESP 19; TEMP 97.6; O2SAT 94
[2023-08-27] MEDS ORDERED: POTASSIUM CHLORIDE 10 MEQ TABLET.ER PO SCH (21:00)
[2023-08-27] MEDS: ATORVASTATIN 20 MG TABLET PO SCH (22:37)
[2023-08-27] MEDS: FUROSEMIDE 20 MG TABLET PO SCH (22:38)
[2023-08-28] VITALS (7 sets, daily range): BP systolic 112–136; PULSE 57–117; RESP 15–18; TEMP 97–98.1; O2SAT 93–98
[2023-08-28 05:29] LABS: ALANINE AMINOTRANSFERASE 17 U/L (12-78); ALBUMIN 3.2 g/dL (3.4-4.8); ANION GAP 6 (5-15); ASPARTATE AMINOTRANSFERASE 14 U/L (10-37); CALCIUM 9.9 mg/dL (8.4-11.0); CARBON DIOXIDE 31 mmol/L (23-29); CHLORIDE 101 mmol/L (98-107); CREATININE 1.57 mg/dL (0.55-1.30); GLUCOSE 135 mg/dL (74-106); POTASSIUM 3.6 mmol/L (3.5-5.1); SODIUM SERUM 138 mmol/L (136-145); TOTAL BILIRUBIN 0.3 mg/dL (0.0-1.0); TOTAL PROTEIN, SERUM 6.7 g/dL (6.4-8.3); UREA NITROGEN, BLOOD 29 mg/dL (8-21)
[2023-08-28] MEDS: ASPIRIN 81 MG TAB.CHEW PO SCH (08:05)
[2023-08-28] MEDS: FUROSEMIDE 20 MG TABLET PO SCH ×2 (08:05→20:20)
[2023-08-28] MEDS: CLOPIDOGREL BISULFATE 75 MG TABLET PO SCH (08:05)
[2023-08-28] MEDS: D5/0.45 NS 1,000 ML IV SCH ×2 (08:06→20:15)
[2023-08-28] MEDS: PRAMIPEXOLE DI-HCL 0.25 MG TABLET PO SCH (08:06)
[2023-08-28] MEDS ORDERED: DOCUSATE SODIUM 100 MG CAPSULE PO SCH (15:30)
[2023-08-28] MEDS: PRAMIPEXOLE DI-HCL 1 MG TABLET PO SCH (17:47)
[2023-08-28] MEDS: DOCUSATE SODIUM 100 MG CAPSULE PO SCH (20:20)
[2023-08-28] MEDS: cephALEXin 250 MG CAPSULE PO SCH (20:20)
[2023-08-28] MEDS: ATORVASTATIN 20 MG TABLET PO SCH (20:20)
[2023-08-28] MEDS: ALPRAZolam 0.25 MG TABLET PO PRN (22:34)
[2023-08-29 00:26] VITALS: BP_SYST 131; PULSE 76; RESP 18; TEMP 97.4; O2SAT 91
[2023-08-29 05:32] LABS: BASOPHILS % (AUTO) 0.3 % (0.0-2.0); EOSINOPHILS # (AUTO) 0.2 K/uL (0.0-0.4); EOSINOPHILS % (AUTO) 3.1 % (0.0-4.0); HEMATOCRIT 39.3 % (36-48); HEMOGLOBIN 12.9 g/dL (12.0-16.0); LYMPHOCYTES # (AUTO) 1.2 K/uL (1.0-5.5); MEAN CORPUSCULAR HEMOGLOBIN 29 pg (27-31); MEAN CORPUSCULAR HGB CONC 33 % (32-36); MEAN CORPUSCULAR VOLUME 89 fL (79.0-98.0); MONOCYTES # (AUTO) 0.8 K/uL (0.0-1.0); MONOCYTES % (AUTO) 11.7 % (1.7-9.3); NEUTROPHILS # (AUTO) 4.3 K/uL (1.8-7.7); NEUTROPHILS % (AUTO) 66.9 % (40.0-70.0); PLATELET COUNT (AUTO) 223 K/uL (130-430); RED BLOOD CELL COUNT(AUTO) 4.42 MIL/uL (4.2-6.2); RED CELL DISTRIBUTION WIDTH 13.5 % (9.0-15.0); WHITE BLOOD COUNT (AUTO) 6.5 K/uL (4.8-10.8)
[2023-08-29 05:58] LABS: ANION GAP 7 (5-15); CALCIUM 9.3 mg/dL (8.4-11.0); CARBON DIOXIDE 31 mmol/L (23-29); CHLORIDE 101 mmol/L (98-107); CREATININE 1.39 mg/dL (0.55-1.30); GLUCOSE 128 mg/dL (74-106); POTASSIUM 3.5 mmol/L (3.5-5.1); SODIUM SERUM 139 mmol/L (136-145); UREA NITROGEN, BLOOD 27 mg/dL (8-21)
[2023-08-29 08:00] VITALS: BP_SYST 128; PULSE 18; RESP 18; TEMP 97.2; O2SAT 95
[2023-08-29] MEDS: ASPIRIN 81 MG TAB.CHEW PO SCH (08:40)
[2023-08-29] MEDS: cephALEXin 250 MG CAPSULE PO SCH (08:40)
[2023-08-29] MEDS: CLOPIDOGREL BISULFATE 75 MG TABLET PO SCH (08:40)
[2023-08-29] MEDS: PRAMIPEXOLE DI-HCL 0.25 MG TABLET PO SCH (08:40)
[2023-08-29] MEDS: DOCUSATE SODIUM 100 MG CAPSULE PO SCH (08:40)
[2023-08-29] MEDS: FUROSEMIDE 20 MG TABLET PO SCH (08:41)
[2023-08-29 10:37] VITALS: O2SAT 95
[2023-08-29] MEDS: D5/0.45 NS 1,000 ML IV SCH (11:23)
[2023-08-29 11:37] VITALS: BP_SYST 132; PULSE 79; RESP 16; TEMP 96.7; O2SAT 96
[2023-08-29] MEDS ORDERED: ERTAPENEM SODIUM 0.5 GM in NS 50 ML IV SCH (15:00)
[2023-08-29 15:29] VITALS: BP_SYST 131; PULSE 56; RESP 16; TEMP 96.2; O2SAT 94
[2023-08-29 15:45] VITALS: BP_SYST 134; PULSE 83; RESP 18; TEMP 98.2; O2SAT 96
[2023-08-29] MEDS: PRAMIPEXOLE DI-HCL 1 MG TABLET PO SCH (17:07)
== END 2023-08-29 19:58 | DRG 689 ==
LOC: SED 12:52 → SMU 18:45
PROVIDERS: ADMIT Internal Medicine; ATTEND Internal Medicine
DX: N39.0 Urinary tract infection, site not specified (principal); N17.0 Acute kidney failure with tubular necrosis; F03.90 Unspecified dementia, unspecified severity, without behavioral disturbance, psychotic disturbance, mood disturbance, and anxiety; I10 Essential (primary) hypertension; Z88.1 Allergy status to other antibiotic agents; Z86.73 Personal history of transient ischemic attack (TIA), and cerebral infarction without residual deficits; Z88.2 Allergy status to sulfonamides
CPT/HCPCS: 36415; 80048; 80053; 81000; 81001; 81015; 82009; 82150; 83605; 83690; 84484; 85025; 87081; 87086; 96360; 97110-GP; 97530-GP; 99285; J1335; J2543; Q0162